=== PATIENT | female | born 1990 | race Caucasian/White ===

== ENCOUNTER 2020-06-13 14:13 | Outpatient (CLI) | payer BC, SELFPAY ==
[2020-06-13 14:47] VITALS: BP 109/72; PULSE 87
[2020-06-13 15:01] VITALS: BP 120/62; PULSE 77
[2020-06-13 15:05] VITALS: BP 120/62; PULSE 82; PULSE 87; RESP 18; TEMP 36.4
[2020-06-13 15:29] LABS: Glucose Point of Care 87 (65-105)
--- NOTE | 2020-06-13 15:48 | PC.NURSE ---
Patient states she has done hypertension lab at [facility] earlier today and suppose to start 24 urine collection on Wednesday. called Dr. Alcazar reported about lab. no need repeat lab. Dr. Alcazar will look up for result from [facility]. reported BP result. okay to discharge.
== END 2020-06-13 15:15 | disposition home or self-care (01) ==
LOC: ANHOBOP 14:20 → ANHOBPP 14:21
PROVIDERS: Family Provider Obstetrics & Gynecology; Visit Provider Obstetrics & Gynecology
DX: O13.9 Gestational [pregnancy-induced] hypertension without significant proteinuria, unspecified trimester (principal); Z3A.00 Weeks of gestation of pregnancy not specified
CPT/HCPCS: 59025; 99199

== ENCOUNTER 2020-10-09 12:35 | Outpatient (RCR) | payer OTHER, SELFPAY ==
[2020-09-11 14:52] VITALS: BP 135/69; PULSE 102
[2020-09-11 15:54] VITALS: BP 135/69; PULSE 105
[2020-09-18 13:41] VITALS: BP 122/76
[2020-09-25 14:05] VITALS: BP 125/89; PULSE 99
[2020-10-02 14:00] VITALS: BP 131/78; PULSE 102
--- NOTE | ~2020-10-09 | US_ITS ---
US OB BPP wo non-stress DATE: 10/09/2020 14:16 INDICATION: Gestational hypertension TECHNIQUE: Real-time imaging and Doppler analysis COMPARISON: 10/02/2020 obstetrical ultrasound with biophysical profile FINDINGS: Live massey intrauterine gestation, fetus in longitudinal lie, vertex presentation. Feta l heart rate of 169 bpm. Anterior placenta. Subjectively normal amount of amniotic fluid. BIOPHYSICAL PROFILE reported by graphics edit technician: breathin out of 2 movement: 2 out of 2 tone: 2 out of 2 Amniotic fluid pocket: 2 out of 2 Total score: 8 out of 8 IMPRESSION: Normal biophysical profile score of 8 out of 8 Reviewed, dictated and finalized at Location A. Reviewed, dictated and finalized at location B. D AND PASTRY BAKER
--- NOTE | ~2020-10-09 | US_ITS ---
EXAMINATION: US OB BPP wo non-stress EXAM DATE: 10/02/2020 13:56 INDICATION: Hypertension in HTN. 3rd trimester. TECHNIQUE: Pelvic obstetrical transabdominal sonogram was performed by a technologist. There are mu ltiple grayscale and Doppler images available for interpretation. Comparison is made to prior examina tion from 09/25/2020. FINDINGS: There is a single fetus identified in vertex presentation with a heart rate of 142 beats pe r minute. The placenta is located in the anterior position. There is no sonographic evidence of retr oplacental hemorrhage identified. BIOPHYSICAL PROFILE (performed by the technologist) breathing (30 sec sustained breathing in 30 minutes): 2 out of 2 movement (3 gross body movements in 30 minutes): 2 out of 2 tone (one episode of ngopqaz-bcavseclw-ptaiagu limb movement): 2 out of 2 Amniotic fluid pocket (2 cm): 2 out of 2 Total score: 8 out of 8 IMPRESSION: 1. Single fetus with heart rate of 142 bpm. 2. Normal biophysical profile score of 8 out of 8. Reviewed, dictated and finalized at location A. OR TECHNICAL TRAINER
--- NOTE | ~2020-10-09 | US_ITS ---
EXAMINATION: US OB BPP wo non-stress DATE: 09/18/2020 13:28 INDICATION: Gestational hypertension. Estimated date of delivery of 10/27/2020. TECHNIQUE: Real-time pelvic ultrasound was performed. COMPARISON: Ultrasound 09/11/2020 FINDINGS: There is a single living fetus in vertex presentation. The placenta is anterior. heart rate is 129 beats per minute (bpm). Biophysical profile performed by the technologist: breathing (30 sec sustained breathing in 30 minutes): 2 out of 2 movement (3 gross body movements in 30 minutes): 2 out of 2 tone (one episode of nxpvpyb-unhyjsonn-tjtntti limb movement): 2 out of 2 Amniotic fluid pocket (2 cm): 2 out of 2 Total score: 8 out of 8 IMPRESSION: 1. Single living fetus in vertex presentation. 2. Biophysical profile 8 out of 8. Reviewed, dictated and finalized at location A.
--- NOTE | ~2020-10-09 | US_ITS ---
EXAMINATION: US OB BPP wo non-stress DATE: 09/11/2020 15:50 INDICATION: Hypertension in . Third trimester. TECHNIQUE: Real-time pelvic ultrasound was performed. COMPARISON: None. FINDINGS: There is a single living fetus in vertex presentation. The placenta is anterior. heart rate is 149 beats per minute (bpm). Biophysical profile performed by the technologist: breathing (30 sec sustained breathing in 30 minutes): 2 out of 2 movement (3 gross body movements in 30 minutes): 2 out of 2 tone (one episode of yspvezr-mguqxlxaf-hpecfgn limb movement): 2 out of 2 Amniotic fluid pocket (2 cm): 2 out of 2 Total score: 8 out of 8 IMPRESSION: 1. Single living fetus in vertex presentation. 2. Biophysical profile 8 out of 8. Reviewed, dictated and finalized at location A.
--- NOTE | ~2020-10-09 | US_ITS ---
EXAMINATION: US OB BPP wo non-stress DATE: 09/25/2020 14:05 INDICATION: Gestational hypertension, third trimester TECHNIQUE: Real-time pelvic ultrasound was performed. The interpreting radiologist was not present fo r the study. COMPARISON: 09/18/2020 FINDINGS: There is a single living fetus in vertex presentation. The placenta is anterior. heart rate is 155 beats per minute (bpm). Biophysical profile performed by the technologist: breathing (30 sec sustained breathing in 30 minutes): 2 out of 2 movement (3 gross body movements in 30 minutes): 2 out of 2 tone (one episode of ulxmbok-vvjrdafxl-ojbqoew limb movement): 2 out of 2 Amniotic fluid pocket (2 cm): 2 out of 2 Total score: 8 out of 8 IMPRESSION: 1. Single living fetus in vertex presentation. 2. Biophysical profile 8 out of 8. Reviewed, dictated and finalized at location A. T RAIL OPERATOR
[2020-10-09 14:25] VITALS: BP 123/72; PULSE 108
== END 2020-10-14 07:29 | disposition home or self-care (01) ==
LOC: ANHOBOP 12:35
PROVIDERS: Visit Provider Obstetrics & Gynecology
DX: O13.3 Gestational [pregnancy-induced] hypertension without significant proteinuria, third trimester (principal); Z3A.33 33 weeks gestation of pregnancy; Z3A.34 34 weeks gestation of pregnancy; Z3A.35 35 weeks gestation of pregnancy; Z3A.36 36 weeks gestation of pregnancy; Z3A.37 37 weeks gestation of pregnancy
CPT/HCPCS: 59025; 76819

== ENCOUNTER 2020-10-10 13:43 | Inpatient (IN) | payer OTHER, SELFPAY ==
[2020-10-10] VITALS (18 sets, daily range): BP systolic 79–135; BP diastolic 47–85; PULSE 90–132; TEMP 36.3–36.6; BMI 54.3
--- NOTE | 2020-10-10 14:02 | LDADM ---
This patient, Lacy Feng, was admitted to Labor/Delivery/Recovery 108 on 10/10/20 at 13:43. Plans for labor, pain management and were discussed with patient. Patient/family oriented to hospital policies and general routines including ID bracelet, bed and alarms, visiting hours, pain management, procedures, bathroom and other care routines, personal items, smoking policy, room service/diet and guest tray routines, security routines, call light, and visiting hours. Patient/Family are encouraged to report perceived risks to care and to ask questions if they do not understand what they are told or what they should do. See OBIX for further documentation.
[2020-10-10] MEDS: DINOPROSTONE 10 MG VAG INSERT VAGINAL (14:51)
[2020-10-10] MEDS: LACTATED RINGERS 1,000 ML 125 ML IV CONT (15:00)
[2020-10-10] MEDS: AMPICILLIN 2 GM/NS 100 ML 2 GM/100 ML BAG IVPB (15:01)
[2020-10-10 15:02] LABS: Basophils Percent Auto 0.2 % (0.2-1.2); Eosinophils Absolute Auto 0.1 K/mm3 (0-0.3); Eosinophils Percent Auto 0.6 % (0-4.4); Hematocrit 34.2 % (37.0-47.0); Hemoglobin 11.7 g/dL (12.0-15.0); Immature Granulocyte Absolute 0.14 K/mm3 (0.00-0.031); Immature Granulocyte Percent A 1.1 % (0-0.5); Lymphocytes Absolute Auto 1.61 K/mm3 (0.9-3.2); Lymphocytes Percent Auto 12.7 % (18.3-44.2); Mean Corpuscular HGB Conc 34.2 g/dl (32-36); Mean Corpuscular Hemoglobin 32.5 pg (26-34); Monocytes Absolute Auto 0.9 K/mm3 (0.1-0.6); Monocytes Percent Auto 7.1 % (2.6-8.5); Neutrophils Absolute Auto 9.9 K/mm3 (1.3-6.7); Neutrophils Percent Auto 78.3 % (45.5-73.1); Platelet Count Result 201 k/mm3 (150-375); White Blood Count 12.6 K/mm3 (4.5-10.0)
[2020-10-10 15:06] LABS: Creatinine Urine 149.5 mg/dL; Total Protein Urine Random 9 mg/dL
[2020-10-10 15:12] LABS: Anion Gap 10 mmol/L (8-16); Blood Urea Nitrogen 10 mg/dL (7-17); Calcium 9.1 mg/dL (8.4-10.2); Carbon Dioxide 20 mmol/L (22-30); Chloride 107 mmol/L (98-107); Estimated CRCL calculation 159 ml/min; Estimated Glomerular Filt Rate > 60; Glucose 93 mg/dL (65-105); Potassium 4.5 mmol/L (3.4-5.0); Sodium 137 mmol/L (137-145); Uric Acid 4.7 mg/dL (2.5-7.5)
[2020-10-10 15:15] LABS: Add Urine Microscopic? YES; Amorphous Sediment Urine Few; Appearance Urine Cloudy (Clear); Bacteria Urine 1+ /hpf; Bilirubin Urine Negative (Negative); Blood Urine 3+ (Negative); Color Urine Yellow (Yellow); Glucose Urine UA Negative (Negative); Ketones Urine Negative (Negative); Leukocyte Esterase Ur 1+ LEU/UL (NEGATIVE); Mucus Urine Few /lpf; Nitrate Urine Negative (Negative); Protein Urine 1+ mg/dL (Negative); Specific Grav Ur 1.019 (1.001-1.035); Squamous Epithelial Cell Urine Few /hpf (Few); Urobilinogen Urine Negative mg/dL (<2.0)
--- NOTE | 2020-10-10 17:21 | PM.IMHP ---
H&P: HPI History of Present Illness Date/Time: 10/10/20 16:53 Chief complaint: Induction of Labor Narrative: Lacy Feng is a 30 yo @ 37.4wks who presented for IOL due to concerns for SPEC w/ SF. Pt has chronic HTN and has been taking Labetalol 50mg BID. Her baseline labs were normal in and her BP's have always been in the normal range since starting the medications. However, this week she was noted to have mild range BP's w/ a headache that lasted 12 hours (initially resolved w/ tylenol, but then returned and did not resolve w/ the next tylenol dose). She also reported shortness of breath. She denies any vision changes or CP. She reports good movement. No LOF or VB. Her is complicated by: - CHTN on labetalol 50mg BID + ASA - Obesity - Elevated glucola; normal 3hr OGTT - GBS positive Review of Systems Constitutional: Constitutional: Denies body ache(s), Denies chills and Denies fever(s) Eyes: Eyes: Denies blurry vision and Denies change in vision Cardiovascular: Cardiovascular: Denies chest pain and Denies rapid heart rate Respiratory: Respiratory: Denies cough and Denies dyspnea Gastrointestinal: Gastrointestinal: Denies abdominal pain, Denies nausea and Denies vomiting Genitourinary: Genitourinary: Denies abnormal vaginal bleeding and Denies vaginal discharge Neurologic: Denies Abnormal speech present, Denies dizziness and Reports headache(s) Psychiatric: Psychiatric: Denies anxiety and Denies depression [facility] Family History Family History Father Hypertension Diabetes mellitus Mother Hypothyroid Grandparent Hypothyroid Grandparent Cerebrovascular accident Social History Social History Smoking status: Never smoker Substance use: never Spiritual care concerns: No Meds Home Medications and Allergies Home Medications Medication Instructions Recorded Confirmed Type aspirin 81 mg PO BID 06/13/20 09/11/20 History labetalol 100 mg PO Q12H 06/13/20 10/09/20 History PNV no.80-rpps-sancv acid 1 tablet PO DAILY 09/11/20 09/11/20 History [Complete ] Allergies Allergy/AdvReac Type Severity Reaction Status Date / Time No Known Allergies Allergy Verified 10/09/20 13:09 Vital Signs Vital Signs - 24 hr 10/10/20 14:25 10/10/20 14:30 10/10/20 15:01 Temperature 36.3 C L Pulse Rate 132 H 115 H Blood Pressure 125/82 117/83 10/10/20 15:31 10/10/20 15:34 10/10/20 15:36 Temperature Pulse Rate 96 96 90 Blood Pressure 94/53 L 79/53 L 88/55 L 10/10/20 16:01 10/10/20 16:10 10/10/20 16:31 Temperature 36.6 C Pulse Rate 93 92 Blood Pressure 89/57 L 106/59 L Exam Const: General: cooperative, healthy appearing, comfortable and no acute distress Nutritional Appearance: obese Resp: Effort & Inspection: normal respiratory effort Cardio: Rate: regular rate GI: Inspection: normal to inspection GI Palp: No abdominal tenderness : Other: FHT's: 140's/ mod amelia/ + accels/ no decels - cat 1 TOCO: irregular ctx's Cervix: 2/thick/-3 Membranes: intact Position: cephalic Skin: General skin exam: normal color Neuro: General: patient oriented x3 Psych: Appearance: grossly normal H&P: Results Labs Labs: Short CBC 10/10/20 Range/Units 14:43 WBC 12.6 H (4.5-10.0) K/mm3 Hgb 11.7 L (12.0-15.0) g/dL Hct 34.2 L (37.0-47.0) % Plt Count 201 (150-375) k/mm3 BMP 10/10/20 14:43 Sodium 137 Potassium 4.5 Chloride 107 Carbon Dioxide 20 L BUN 10 Creatinine 0.60 L Glucose 93 Calcium 9.1 Urine 10/10/20 Range/Units 14:43 Urine Color Yellow (Yellow) Urine Appearance Cloudy H (Clear) Urine pH 6.0 (5.0-9.0) Ur Specific [place] 1.019 (1.001-1.035) Urine Protein 1+ H (Negative) mg/dL Urine Glucose (UA) Negative (Negative) mg/dL Assessment and Lorelei
--- NOTE | 2020-10-10 18:00 | WPDHPUPDATE1 ---
History and Physical Update Update Date/Time: 10/11/20 07:48 History and Physical has been reviewed, including an updated exam of the patient. There are NO changes in the patient's condition. Risks, benefits, and alternatives have been discussed and questions answered. Patient agrees to proceed with procedure.
[2020-10-10] MEDS: AMPICILLIN 1 GM/NS 50 ML 1 GM/50 ML BAG IVPB ×2 (19:03→23:16)
[2020-10-11] VITALS (215 sets, daily range): BP systolic 103–153; BP diastolic 51–126; PULSE 43–127; RESP 18; TEMP 36.1–37.3; O2SAT 87–100
[2020-10-11] MEDS: LACTATED RINGERS 1,000 ML 125 ML IV CONT ×2 (04:23→08:24)
[2020-10-11] MEDS: OXYTOCIN 30 UNITS/NS 500 ML 30 UNITS/500 ML BAG 6 UNITS IV CONT (04:24)
[2020-10-11] MEDS: AMPICILLIN 1 GM/NS 50 ML 1 GM/50 ML BAG IVPB ×4 (04:24→17:09)
--- NOTE | 2020-10-11 06:43 | WPDANESEPP ---
Anes - Eval Pre Procedure Procedure: Labor epidural Date/Time: 10/11/20 06:43 Surgeon: Ottoniel Preop Diagnosis: pain during labor Pre Op Diagnosis: Induction of Labor Patient Data Age: 30 Gender: F Height: 1.6 m Weight: 139 kg Last Vital Signs Temp 36.4 C 10/10/20 21:53 Pulse 106 H 10/10/20 23:41 BP 127/47 L 10/10/20 23:41 Allergies Allergy/AdvReac Type Severity Reaction Status Date / Time No Known Allergies Allergy Verified 10/09/20 13:09 Home Medications Medication Instructions Recorded Confirmed Type aspirin 81 mg PO BID 06/13/20 09/11/20 History labetalol 100 mg PO Q12H 06/13/20 10/09/20 History PNV no.03-qrkz-rvapn acid 1 tablet PO DAILY 09/11/20 09/11/20 History [Complete ] Laboratory Tests 10/10/20 10/10/20 10/10/20 14:43 14:43 14:43 WBC 12.6 K/mm3 H K/mm3 (4.5-10.0) RBC 3.60 M/mm3 L M/mm3 (4.2-5.4) Hgb 11.7 g/dL L g/dL (12.0-15.0) Hct 34.2 % L % (37.0-47.0) MCV 95.0 fl fl (80-100) MCH 32.5 pg pg (26-34) MCHC 34.2 g/dl g/dl (32-36) RDW 13.0 % % (11.5-14.5) Plt Count 201 k/mm3 k/mm3 (150-375) MPV 11.0 fl H fl (7.4-10.4) Immature Gran % (Auto) 1.1 % H % (0-0.5) Neut % (Auto) 78.3 % H % (45.5-73.1) Lymph % (Auto) 12.7 % L % (18.3-44.2) Preston % (Auto) 7.1 % % (2.6-8.5) Eos % (Auto) 0.6 % % (0-4.4) Baso % (Auto) 0.2 % % (0.2-1.2) Lymph # (Auto) 1.61 K/mm3 K/mm3 (0.9-3.2) Preston # (Auto) 0.9 K/mm3 H K/mm3 (0.1-0.6) Eos # (Auto) 0.1 K/mm3 K/mm3 (0-0.3) Baso # (Auto) 0.0 K/mm3 K/mm3 (0.0-0.1) Abs Immat Gran (auto) 0.14 K/mm3 H K/mm3 (0.00-0.031) Absolute Neuts (auto) 9.9 K/mm3 H K/mm3 (1.3-6.7) Absolute Nucleated RBC 0.0 K/mm3 K/mm3 (0.0-0.012) Nucleated RBC % 0.0 % % (0.0-0.2) Sodium Potassium Chloride Carbon Dioxide Anion Gap BUN Creatinine Estim Creat Clear Calc Estimated GFR Glucose Uric Acid Calcium Urine Color Urine Appearance Urine pH Ur Specific [place] Urine Protein Urine Glucose (UA) Urine Ketones Ur Blood (Man) Urine Nitrate Urine Bilirubin Urine Urobilinogen Ur Leukocyte Esterase Urine RBC Urine WBC Ur Squamous Epith Cells Amorphous Sediment Urine Bacteria Urine Mucus U Random Total Protein Urine Creatinine RPR Pending Blood Type O Positive Antibody Screen Negative 10/10/20 10/10/20 10/10/20 14:43 14:43 14:43 WBC RBC Hgb Hct MCV MCH MCHC RDW Plt Count MPV Immature Gran % (Auto) Neut % (Auto) Lymph % (Auto) Preston % (Auto) Eos % (Auto) Baso % (Auto) Lymph # (Auto) Preston # (Auto) Eos # (Auto) Baso # (Auto) Abs Immat Gran (auto) Absolute Neuts (auto) Absolute Nucleated RBC Nucleated RBC % Sodium 137 mmol/L mmol/L (137-145) Potassium 4.5 mmol/L mmol/L (3.4-5.0) Chloride 107 mmol/L mmol/L (98-107) Carbon Dioxide 20 mmol/L L mmol/L (22-30) Anion Gap 10 mmol/L mmol/L (8-16) BUN 10 mg/dL mg/dL (7-17) Creatinine 0.60 mg/dL L mg/dL (0.7-1.0) Estim Creat Clear Calc 159 ml/min ml/min Es
--- NOTE | 2020-10-11 07:49 | PM.OBPNLAB ---
Pain Control Date/time seen: 10/11/20 07:49 Pain control: tolerating well (but wants epidural) Pelvic Exam Dilation (cm): 4 Effacement (%): 50 station: -2 Amniotic membrane status: Ruptured (0745, clear) Contractions Monitor mode: Internal Contraction frequency: 3 Contraction pattern: Regular Intrauterine tone measurement: 70 Status status: Category l Assessment and Plan Pitocin rate (mU/min): 8 Assessment: induction ongoing Plan: continuous present management Comments: - BP's in normal range; pt reported headache but has resolved with tylenol - continue present management
[2020-10-11] MEDS: ONDANSETRON INJ 4 MG/2 ML VIAL IV PUSH (08:14)
[2020-10-11 08:18] LABS: Rapid Plasma Reagin Non-Reactive (NonReactive)
--- NOTE | 2020-10-11 20:11 | P.PCNOB_ITS ---
OB - Delivery Note Procedure Delivery date: 10/11/20 events: Pre-Eclampsia and Labor Induction Intrapartal events: None Induction method: per cervidil protocol Delivery augmentation: rupture of membranes and pitocin Delivery monitor: external FHT and internal uterine Route of delivery: Laceration Description: Perineal - 2nd Degree Delivery repair: vicryl Estimated blood loss (mL): 450 Anesthesia type: Epidural Disposition: floor Narrative: Patient progressed to complete dilation with desire to push. With good maternal effort and after approximately 5 contractions she delivered the head over intact perineum. The shoulders and body delivered without complications. The had spontaneous cry and was immediately placed skin to skin on mom. The umbilical cord was then clamped and cut. A segment of the umbilical cord was collected for cord gases and the remaining cord blood was collected for typing. With Pitocin running and gentle downward traction on the umbilical cord the placenta delivered without complications. Brisk bleeding was noted and bimanual massage was performed and mild uterine atony was noted but resolved massage. Brisk bleeding was then noted from the perineum where a second-degree perineal laceration was noted. The second-degree perineal laceration was repaired in the normal fashion using 2 0 Vicryl. The cervix and vagina were then examined and no further lacerations were noted. Good uterine tone was noted with minimal bleeding. Sponge, lap, needle, instrument counts were correct at the end of the procedure. Mom and baby were left bonding skin to skin in the birthing suite in a stable condition. [place] Baby Date of : 10/11/20 Time of : 19:48 Weeks of gestation at delivery: 37 gender: Male Weight (pounds): 7 Weight (ounces): 3 presentation: vertex position: Right Occiput Anterior Placenta delivery description: Expressed cord vessel description: 3 Vessels score one minute: 9 score five minutes: 9
[2020-10-11] MEDS: WITCH HAZEL 40 PADS 1 PAD TOPICAL (22:28)
[2020-10-11] MEDS: BENZOCAINE 20% AER SPR (*SP) 56 GM CAN 1 SPRAY TOPICAL (22:28)
[2020-10-11] MEDS: LABETALOL HCL 50 MG TABLET PO (22:28)
[2020-10-11] MEDS: DIBUCAINE 1% OINTMENT 30 GM TUBE 1 APPLIC TOPICAL (23:47)
[2020-10-11] MEDS: HYDROcodone/acetaminophen (*CRX) 5-325 MG TABLET 1 TAB PO (23:47)
--- NOTE | 2020-10-12 00:45 | OBPPTRN ---
Patient transferred to post room #285 via wheelchair with baby in bassinet. Support person present. Oriented to unit, room, information board, rooming in, admission packet and security measures. Patient verbalizes understanding.
[2020-10-12 05:02] LABS: Hematocrit 26.3 % (37.0-47.0); Mean Corpuscular HGB Conc 34.2 g/dl (32-36); Mean Corpuscular Hemoglobin 32.1 pg (26-34); Mean Corpuscular Volume 93.9 fl (80-100); Mean Platelet Volume 11.1 fl (7.4-10.4); Platelet Count Result 179 k/mm3 (150-375); Red Cell Distribution Width 12.8 % (11.5-14.5); White Blood Count 17.1 K/mm3 (4.5-10.0)
[2020-10-12 05:17] LABS: Alanine Aminotransferase 12 U/L (4-35); Albumin Level 2.7 g/dL (3.5-5.1); Alkaline Phosphatase 78 U/L (38-126); Anion Gap 7 mmol/L (8-16); Aspartate Amino Transferase 19 U/L (14-36); Bilirubin,Total 0.4 mg/dL (0.2-1.3); Blood Urea Nitrogen 9 mg/dL (7-17); Calcium 8.4 mg/dL (8.4-10.2); Carbon Dioxide 21 mmol/L (22-30); Chloride 106 mmol/L (98-107); Estimated CRCL calculation 159 ml/min; Estimated Glomerular Filt Rate > 60; Glucose 127 mg/dL (65-105); Potassium 3.7 mmol/L (3.4-5.0); Sodium 134 mmol/L (137-145)
[2020-10-12] MEDS: IBUPROFEN 600 MG TABLET PO ×2 (06:02→12:33)
[2020-10-12] MEDS: HYDROcodone/acetaminophen (*CRX) 5-325 MG TABLET 1 TAB PO (06:03)
[2020-10-12 08:00] VITALS: BP 131/77; PULSE 79; RESP 18; TEMP 36.7; O2SAT 100
[2020-10-12 08:49] VITALS: PULSE 100
[2020-10-12] MEDS: LABETALOL HCL 50 MG TABLET PO (08:49)
[2020-10-12] MEDS: POLYSACCHARIDE IRON COMPLEX 150 MG CAPSULE PO ×2 (08:50→17:22)
[2020-10-12] MEDS: DOCUSATE SODIUM 100 MG CAPSULE PO ×2 (08:50→17:22)
[2020-10-12] MEDS: MULTIVIT/MIN/PREN/FOL AC/IRON TABLET 1 TAB PO (08:50)
--- NOTE | 2020-10-12 09:59 | PM.OBPNVD ---
OB - PN: Subj Subjective Date/time seen: 10/12/20 09:59 PPD#1 Lacy reports doing well today. Her pain is doing well, except she has a lot of pain from an inflamed hemorrhoid. She reports her bleeding is normal. She has ambulated w/o issue. She has voided and passed flatus. She has tolerated regular diet. She is breast and bottle feeding. She would like her son to be circumcised. She denies PIZANO, vision changes, CP, SOB, N/V, fever, chills, palpitations, or dizziness. OB - PN: Obj Data Labs CBC & Chem 7: 10/12/20 04:02 10/12/20 04:02 Labs: Laboratory Results - last 24 hr 10/12/20 10/12/20 04:02 04:02 WBC 17.1 H RBC 2.80 L Hgb 9.0 L Hct 26.3 L MCV 93.9 MCH 32.1 MCHC 34.2 RDW 12.8 Plt Count 179 MPV 11.1 H Sodium 134 L Potassium 3.7 Chloride 106 Carbon Dioxide 21 L Anion Gap 7 L BUN 9 Creatinine 0.60 L Estim Creat Clear Calc 159 Estimated GFR > 60 Glucose 127 H Calcium 8.4 Total Bilirubin 0.4 AST 19 ALT 12 Alkaline Phosphatase 78 Total Protein 5.0 L Albumin 2.7 L OB - PN A/P Assessment and Plan (1) Normal vaginal delivery of first : Code(s): O80 - Encounter for full-term uncomplicated delivery Status: Acute (2) Chronic hypertension affecting : Code(s): O10.919 - Unspecified pre-existing hypertension complicating , unspecified trimester Status: Acute Plan day: 1 Plan: routine care and discharge home (tomorrow) Comments: - BP's in normal to mild range; continue labetalol 50mg BID-- pt to monitor BP's at home - Circumcision performed w/o issue - Pt to be discharged home tomorrow - Return precautions discussed: PEC, abd pain/n/v, bleeding, fever - Pelvic rest Time Spent With Patient Time: Total time spent is greater than 50% in coordination of care (as documented) at patient's floor/unit and/or counseling patient: Review of Systems Review of Systems: All systems reviewed & are unremarkable except as noted in HPI and below (HPI) Exam Const: General: cooperative, healthy appearing, comfortable and no acute distress Nutritional Appearance: obese Resp: Effort & Inspection: normal respiratory effort and able to speak in complete sentences Auscultation: clear to auscultation bilaterally Cardio: Rate: regular rate GI: Inspection: normal to inspection and non-distended GI Palp: No abdominal tenderness and Yes Soft to palpation Auscultation: normal bowel sounds : Other: fundus firm below umbilicus Skin: General skin exam: normal color Psych: Appearance: grossly normal Affect: normal affect Attitude: cooperative
[2020-10-12] MEDS: BENZOCAINE 20% AER SPR (*SP) 56 GM CAN 1 SPRAY TOPICAL (17:21)
[2020-10-12] MEDS: ACETAMINOPHEN 325 MG TABLET 650 MG PO (17:21)
[2020-10-12] MEDS: WITCH HAZEL 40 PADS 1 PAD TOPICAL (17:21)
[2020-10-12] MEDS: HYDROCORTISONE ACETATE 25 MG SUPPOSITORY RECTAL (18:18)
[2020-10-12 18:40] VITALS: BP 107/62; PULSE 88; RESP 16; TEMP 36.3; O2SAT 95
[2020-10-12 21:15] VITALS: BP 90/53; PULSE 84
[2020-10-13 00:05] VITALS: BP 125/68; PULSE 93
[2020-10-13] MEDS: IBUPROFEN 600 MG TABLET PO ×2 (03:04→11:42)
[2020-10-13] MEDS: DOCUSATE SODIUM 100 MG CAPSULE PO (06:50)
[2020-10-13] MEDS: MULTIVIT/MIN/PREN/FOL AC/IRON TABLET 1 TAB PO (06:50)
[2020-10-13] MEDS: POLYSACCHARIDE IRON COMPLEX 150 MG CAPSULE PO (06:50)
[2020-10-13 08:00] VITALS: BP 101/59; PULSE 78; RESP 20; TEMP 36.6
--- NOTE | 2020-10-13 09:23 | WPDANLDPN2 ---
Anes-Prog Note L&D Date/Time: 10/13/20 09:23 Comfortable throughout: labor and delivery Neuraxial method: epidural Epidural/Spinal procedure site: clean & non-tender Neuro status: Neuro function grossly intact. Cardiovascular status: normal Respiratory status: normal Airway patency: baseline Mental status: baseline Post-Op hydration status: normal Vital Signs: Last Vital Signs Temp 36.6 C 10/13/20 08:00 Pulse 78 10/13/20 08:00 Resp 20 10/13/20 08:00 BP 101/59 L 10/13/20 08:00 Pulse Ox 95 10/12/20 18:40 Pain score (VAS): 0 Post-procedural complaints: none Patient feedback: Patient satisfied with anesthetic care.
[2020-10-13] MEDS: HYDROCORTISONE ACETATE 25 MG SUPPOSITORY RECTAL (10:12)
--- NOTE | 2020-10-13 11:05 | PC.NURSE ---
Patient viewed the discharge video Mother & Baby Care, The First Two Weeks . Patient was given the opportunity and encouraged to ask questions. Patient verbalized understanding of information shared and has been given the mother/baby guide for home reference.
--- NOTE | 2020-10-13 14:19 | PM.OBDSVD ---
DS: Admitting Diagnosis Admitting Diagnosis Admitting Diagnosis: Induction of Labor DS: Discharge Diagnosis Discharge Diagnosis (1) Normal vaginal delivery of first : Code(s): O80 - Encounter for full-term uncomplicated delivery Status: Acute (2) Morbid obesity with BMI of 50.0-59.9, adult: Code(s): E66.01 - Morbid (severe) obesity due to excess calories; Z68.43 - Body mass index [BMI] 50.0-59.9, adult Status: Acute (3) GBS (group B Streptococcus carrier), +RV culture, currently : Code(s): O99.820 - Streptococcus B carrier state complicating Status: Acute (4) Headache: Qualifiers: Headache type: unspecified Headache chronicity pattern: acute headache Qualified Code(s): R51.9 - Headache, unspecified Code(s): R51.9 - Headache, unspecified Status: Acute (5) Chronic hypertension affecting : Code(s): O10.919 - Unspecified pre-existing hypertension complicating , unspecified trimester Status: Acute OB - DS: Summary OB Procedures : PIH Mgmt and Ultrasound OB Procedures Intrapartum: Spontaneous Vag Delivery OB Procedures: : None Peripartum Data Delivery Method: Natural Vaginal Laceration Description: Perineal - 2nd Degree complications: none 1: Gender: Male Disposition of : home Status at Discharge Functional status at discharge: independent ambulation Overall status at discharge: patient is back to baseline Time Spent with Patient Time attestation: Total time spent providing and/or coordinating discharge services: Exam Const: General: cooperative, healthy appearing, comfortable and no acute distress Nutritional Appearance: obese Resp: Effort & Inspection: normal respiratory effort and able to speak in complete sentences Auscultation: clear to auscultation bilaterally Cardio: Rate: regular rate GI: Inspection: normal to inspection and non-distended GI Palp: No abdominal tenderness and Yes Soft to palpation Auscultation: normal bowel sounds Other: inflamed rectal hemorrhoids : Other: fundus firm below umbilicus, normal lochia Skin: General skin exam: normal color Neuro: General: patient oriented x3 Extrem: General: normal to inspection Psych: Appearance: grossly normal Affect: normal affect Attitude: cooperative DS: Data Data Completed and Pending Pending studies at discharge: Pending at discharge 10/11/20 19:52 Surgical [PTH] Routine Discharge Plan Discharge Attending physician on discharge: Maura Alcazar Discharging Clinician: Maura Alcazar Anticipated Discharge Date/Time: 10/13/20 12:00 Patient Disposition: Home, Self-Care Activity: pelvic rest Diet: regular Discharge Instructions: Education: Mom and Baby Guide Given to: Mother Follow-Up: Call your delivering provider's office for an appointment to be seen in: 1 Week Mom and baby should come to the [facility] for the follow-up appointment. Appointment Date/Time: October 16, 2020 at 11:00 am What to expect at your follow-up visit: Blood Pressure Check Physical Assessment Call [phone] if you are unable to keep your appointment time. Continue to monitor blood pressures daily. If b/p > 140/90 then take prescribed Labetalol 50mg. Monitor pressures twice/day. If experiencing any symptoms such as dizziness, headache, blurred vision, epigastric pain then call clinic and notify MD. Hemorrhoid care consists of portable sitz bath, lay on side and stay off of back to relieve pressure off of buttocks. Use prescribed medication for hemorrhoids. May soak in bath tub. Notify MD. with any questions or concerns. Call MD. office for general surgery referral if needed. BREAST CARE: * Wear a snug supportive bra. * For engorgement discomfort: Breast Feeding: * Apply warm moist washcloths
[2020-10-16 11:45] VITALS: BP 130/77; PULSE 79; RESP 20; TEMP 36.8; O2SAT 100
== END 2020-10-13 12:15 | disposition home or self-care (01) | DRG 560 ==
LOC: ANHLDR 13:48 → ANHOB2 10-11 23:59
PROVIDERS: Admitting Provider Obstetrics & Gynecology; Visit Provider Obstetrics & Gynecology
DX: O11.4 Pre-existing hypertension with pre-eclampsia, complicating childbirth (principal); O99.824 Streptococcus B carrier state complicating childbirth; Z37.0 Single live birth; Z3A.37 37 weeks gestation of pregnancy; O36.8330 Maternal care for abnormalities of the fetal heart rate or rhythm, third trimester, not applicable or unspecified; O70.1 Second degree perineal laceration during delivery; O99.214 Obesity complicating childbirth; E66.9 Obesity, unspecified
CPT/HCPCS: 36415; 80048; 80053; 81001; 82570; 84156; 84550; 85025; 85027; 86592; 86850; 86900; 86901; 87086; 88307; A9270; J0131; J0290; J2405; J2590; J2795; J7120

== ENCOUNTER 2024-08-02 13:38 | Outpatient (CLI) | payer OTHER, SELFPAY ==
--- NOTE | ~2024-08-02 | US_ITS ---
EXAMINATION: US pelvic complete w TV DATE: 08/02/2024 14:05 INDICATION: Abnormal uterine bleeding TECHNIQUE: Multiple transabdominal and endovaginal sonographic images of the pelvis were obtained. COMPARISON: None. FINDINGS: The uterus measures 8.5 x 5.9 x 4.9 cm. The endometrial complex measures 6 mm in thickness. Linear e chogenic and shadowing IUD is seen within the endometrial canal. Again seen are nabothian cysts at th e cervix largest measuring 1.6 cm. The right ovary measures 3.7 x 1.9 x 3.1 cm. The left ovary measur es 2.1 x 2.1 x 2.1 cm. A few small anechoic follicles are seen in both ovaries along with vascular fl ow on color Doppler. There is no free fluid in the pelvis. IMPRESSION: 1. Normal anatomy 2 complex measuring 6 mm with IUD in expected position within the endometrial canal . 2. Nabothian cysts at the cervix. Reviewed, dictated and finalized at location B. IMPRESSION: 1. Normal anatomy 2 complex measuring 6 mm with IUD in expected position within the endometrial canal. 2. Nabothian cysts at the cervix.
== END 2024-08-02 13:39 | disposition home or self-care (01) ==
LOC: GOSHIMG 13:39
PROVIDERS: PCP Student in an Organized Health Care Education/Training Program; Visit Provider Student in an Organized Health Care Education/Training Program
DX: N93.9 Abnormal uterine and vaginal bleeding, unspecified (principal); Z30.431 Encounter for routine checking of intrauterine contraceptive device; N88.8 Other specified noninflammatory disorders of cervix uteri
CPT/HCPCS: 76830; 76856

== ENCOUNTER 2024-12-21 15:18 | Outpatient (CLI) | payer OTHER, SELFPAY ==
--- NOTE | ~2024-12-21 | CT_ITS ---
CLINICAL INDICATION: Epigastric abdominal pain COMPARISON: None. TECHNIQUE: Multiple contiguous axial images of the abdomen and pelvis were performed following the ad ministration of with 100 mL Omnipaque-350 intravenous contrast The dose-length product (DLP) was 1647.25 mGy-cm. Automated exposure control and iterative reconstruction technique were employed. FINDINGS/OBSERVATIONS: Visualized lower thorax: The bilateral lung bases are clear. The heart is of normal size, without pericardial effusion. Small hiatal hernia is present. Liver: The liver enhances homogeneously and is markedly enlarged measuring 21 cm in longitudinal dimension. Gallbladder and biliary system: The gallbladder is surgically absent.. Pancreas: The pancreas enhances homogeneously without ductal dilatation. Spleen: The spleen enhances homogeneously and is not enlarged measuring 8 cm in longitudinal dimension. Kidneys: The bilateral kidneys enhance symmetrically without hydronephrosis or renal calculi. Adrenal glands: Unremarkable. Gastrointestinal tract: Trace fecal stasis within the colon. Appendix: The appendix is not definitively visualized. However, no pericecal inflammatory change is identified suggest the presence of acute appendicitis. Vasculature: Unremarkable. Lymph nodes: No pathologically enlarged or morphologically suspicious lymph nodes within the retroperitoneum or at the root of the mesentery. Pelvic structures: The bladder is only minimally distended, and otherwise unremarkable. The uterus is anteverted and anteflexed. Intrauterine device in position. Body wall and musculoskeletal: Small fat-containing umbilical hernia. No significant degenerative disease within the lower thoracic or lumbosacral spine. IMPRESSION: Enlargement of the liver, without significant fatty infiltration. Small fat-containing umbilical hernia. Reviewed, dictated and finalized at location A. MOGRAPH CHIEF
[2024-12-21 15:51] LABS: Estimated Glomerular Filt Rate > 60
== END 2024-12-21 15:19 | disposition home or self-care (01) ==
PROVIDERS: PCP Student in an Organized Health Care Education/Training Program; Visit Provider Nurse Practitioner
DX: R10.13 Epigastric pain (principal); K42.9 Umbilical hernia without obstruction or gangrene
CPT/HCPCS: 74177; Q9967

== ENCOUNTER 2025-03-22 07:53 | Outpatient (CLI) | payer OTHER, MEDICAID, SELFPAY ==
--- NOTE | ~2025-03-22 | US_ITS ---
Limited Abdominal Sonogram: Real-time sonographic imaging of the right upper quadrant was performed. Clinical History: Abnormal findings, enlarged liver Findings: The liver appears normal with no evidence of mass lesion or bile duct dilatation. Liver me asures 20.2 cm in length. Main portal vein demonstrates normal direction of flow. The gallbladder is absent, compatible prior cholecystectomy. The common bile duct measures 5 mm. The visualized pancrea s, aorta, and IVC are unremarkable. Impression: Hepatomegaly. Reviewed, dictated and finalized at location M. Impression: Hepatomegaly.
== END 2025-03-22 07:54 | disposition home or self-care (01) ==
PROVIDERS: PCP Nurse Practitioner
DX: R93.5 Abnormal findings on diagnostic imaging of other abdominal regions, including retroperitoneum (principal); R16.0 Hepatomegaly, not elsewhere classified
CPT/HCPCS: 76705